=== PATIENT | male | born 1955 | race Two or more races ===

== ENCOUNTER → 2024-10-13 | Outpatient (CLI) | payer MEDICARE ==
[~2024-10-13] MED LIST: ASPI81CH33 PO; ATOR1TAB21; ATOR40TA75; LATANOPROST; LISI20TA33; METF10004; PANT40TA29; PREDOPD; TAMS1CAP17
== END ==
LOC: M RAD 11:13
PROVIDERS: ATTEND Internal Medicine Medical Oncology
DX: D64.9 Anemia, unspecified (principal); R06.02 Shortness of breath

== ENCOUNTER → 2025-03-24 | Outpatient (CLI) | payer MEDICAID, MEDICARE ==
[~2025-03-24] MED LIST changes: +FARX1TAB3
== END ==
LOC: M RAD 16:01
PROVIDERS: ATTEND Internal Medicine Medical Oncology
DX: M54.2 Cervicalgia (principal); D64.9 Anemia, unspecified

== ENCOUNTER → 2025-04-17 | Outpatient (CLI) | payer MEDICARE | LOC: M RAD 15:04 | PROVIDERS: ATTEND Specialist | DX: N40.0 Benign prostatic hyperplasia without lower urinary tract symptoms (principal) ==